=== PATIENT | male | born 1980 ===

== ENCOUNTER 2024-12-24 10:41 | Emergency (ER) | payer OTHER, SELFPAY ==
--- NOTE | ~2024-12-24 | XR_ITS ---
EXAMINATION: XR FACIAL BONES CLINICAL INFORMATION: ? foreign body lower lip-metal COMPARISON: None available. TECHNIQUE: 3 views of the facial bones were obtained. FINDINGS: There is linear high density proximal 4 mm in length in the anterior midline of the lower leg. Numerous dental changes are evident related to teeth fillings. No fracture is evident. XR/XR facial bones <3V IMPRESSION: Linear high density in the lower lip 4 mm in length is probably metallic in nature. Electronically signed by: Wilbur Burnett MD 12/24/2024 12:36 PM EST RP
--- NOTE | 2024-12-24 11:17 | ED_ITS ---
HPI - General Adult General Chief complaint: Skin/Abscess/Foreign Body Stated complaint: injury Time Seen by Provider: 12/24/24 13:51 Source: patient, family (daughter-bilingual, - cymraes only), RN notes reviewed, old records reviewed and translator and interpreter (Brazilian) Mode of arrival: ambulatory Limitations: language barrier History of Present Illness ED Provider: Jessica Mayer PA-C HPI narrative: History and physical done using interpreter and translator, discussed plan and discharge instructions ahead of time ? On Friday, while attempting to remove a screw from a motorcycle, patient struck the screw with a hammer and screwdriver. ? A ?piece of metal? became lodged in the patient?s lip; there was significant bleeding at the time. ? At home the patient applied direct pressure and topical antibiotic ointment. ? Denies additional trauma since the incident. Tetanus immunization is up-to-date. ? Primary concern today is removal of the retained foreign body to reduce infection risk. Patient received RME with facial xray ordered. Related Data Previous Rx's ?Medication ?Instructions ?Recorded amoxicillin 875 mg-potassium 1 tab PO BID #10 tabs clavulanate 125 mg tablet Allergies Allergy/AdvReac Type Severity Reaction Status Date / Time No Known Allergies Allergy Verified 12/24/24 11:31 Review of Systems Review of Systems: Yes all other systems are reviewed and are negative PMFSH Social History Social History Advance Directives: No Advance Directives Information Provided: No Physical Exam ED Exam Exam: General: Appears in no acute distress, appears well nourished body habitus is normal, appears stated age. No septic or ill-appearing. Vitals reviewed normal, PMH/Social and Surgical hx reviewed including allergies and current medications. Head: Normocephalic, no obvious trauma or skin lesions noted. Eyes: EOMI, conjunctiva and sclera clear ENMT: moist oral mucosa, bottom mid lip, pinpoint palpable firm foreign body, 1mm of thin lip skin grown over, slightly edema no erythema, mild ttp, no red streaking, odor or d/c Neck: trachea midline Cardiovascular: peripheral perfusion normal, Regular heart rate Respiratory: no respiratory distress Abdomen: nondistended Extremities: warm and moving without difficulty Psych: Cooperative Neuro: Alert and oriented. Vital Signs: Vital Signs - 24 hr 12/24/24 11:30 12/24/24 13:27 Temperature 98 F 98.3 F Pulse Rate 85 81 Respiratory Rate 18 18 Blood Pressure 107/66 109/74 Pulse Oximetry 97 96 Oxygen Delivery Method Room Air Room Air BMI result Body Mass Index 24.7 Course Course Course Narrative: This is a rapid medical exam performed by Erika Maldonado NP: Additional HPI, ROS, PE not included below will be deferred to primary provider. Patient is a 44y/o Brazilian speaking male presenting to the ED with complaint of . Friday he was working on a bike, a piece of metal came out, entered the front of his lower lip, and he believes it's still lodged inside his lip. Area has been bleeding, not eating due to pain. Plan: xray Medications Administered Discontinued Medications Generic Name Dose Route Start Last Admin Trade Name Freq PRN Reason Stop Dose Admin Lidocaine HCl 2 ml 12/24/24 14:05 12/24/24 15:17 Lidocaine Hcl 2 % 20 Ml Vial INFILTRATI 12/24/24 14:06 2 ml ONCE ONE Administration Procedures Foreign Body Removal Time Out Performed: yes Site: face (lower mid best lip) Description of foreign body: other (metallic fragment 1mm x 4mm x 4mm) Sedation/Analgesia: none Technique: incision made to facilitate removal Confirmed by:: direct visualization and palpation Complications: none Post-procedure exam: awake, alert, normal BP, normal HR and normal O2 sat Neurovascular: normal distal pulse, normal capillary fill, distal light touch sensation intact, distal motor function normal, no signs of compartment syndrome, no change from pre-procedure and other (place one 4-0 vicryl suture in lip for closure, simple interrupted) Medical Decision Making Medical Decision Making [facility] Narrative: Patient presents with retained metallic foreign body to the lip following trauma on Friday. Requires removal to decrease infection risk. Problem #1: Retained foreign body, lip Assessment: Metallic fragment visible in lip following self-inflicted trauma; tetanus is current. Plan: * Administer local anesthetic to affected area. * Create minimal incision to extract foreign body; enlarge incision only if necessary. * If larger incision required, place absorbable suture; external portion will slough when internal portion dissolves. * Prescription: Oral antibiotic x 5 days, twice daily, due to proximity to oral cavity. * Post-procedure instructions: Soft diet and caution with food entry into incision for one week. Use probiotic/yogurt if antibiotic-associated diarrhea occurs. Work/School Note: Offered; patient to discuss needs further. Foreign body was removed. It required incision and has one stitch in place. This is a rapid absorbing suture. When the inside portion dissolves, the outside portion will fall off. TD is UTD. Use bacitracin or petroleum on bottom lip for protective covering. Careful eating. Gentle soap and water daily on this. Take antibiotic prophylaxis with over the counter probiotic to help prevent diarrhea. Return for increased pain or discharge. Differential Diagnosis Differential Diagnoses: The differential diagnosis associated with the presentation includes Admission/Observation Consideration of admission/observation: Escalation of care including admission/observation considered Independent Interpretation I performed an independent interpretation of an: Plain X-Ray Interpretation: metallic foreign body visualized in best lip Radiology Impression Discussion of test interpretation with radiology: I have reviewed the radiologist's reading. Radiologist Impression: foreign body present Independent Historian Clinical information obtained from an independent historian. History obtained from or confirmed by: Other (child) Prescription Management I considered prescription management with: Antibiotic Social Determinants Patient?s care significantly limited by Social Determinants of Health including: Other Social Determinant of Health Discharge Plan Discharge Clinical Impression: Foreign body in skin of lip Patient Disposition: Home, Self-Care Additional Instructions: Hoy acudi? al servicio de urgencias por sospecha de tener un cuerpo extra?o retenido en el labio. Laurita era parcialmente visible chandu la exploraci?n y se confirm? mediante radiograf?a. Se visualiz? un cuerpo extra?o en el labio con tejido circundante intacto y sin sangrado activo ni supuraci?n. Bajo anestesia local, se realiz? shaun incisi?n m?mila para extraer el cuerpo extra?o. Se coloc? shaun sutura de r?pida absorci?n; la parte externa se desprender? al disolverse la interna. El procedimiento transcurri? sin complicaciones y el cuerpo extra?o se extrajo con ?xito. Medicamentos prescritos: ? Antibi?fabian oral chandu 5 d?as, dos veces al d?a, debido al alto riesgo de infecci?n asociado a las heridas bucales y kessler proximidad a la briana oral.[3] ? Probi?fabian de venta crispin o yogur recomendado en donald de diarrea asociada al antibi?fabian. Cuidado de la herida e instrucciones diet?nuria: ? Aplicar bacitracina o vaselina en el labio inferior para protegerlo. ? Limpiar la willy suavemente con agua y jab?n diariamente; evitar las soluciones antis?pticas, ya que pueden dificultar la cicatrizaci?n. ? Mantener shaun dieta blanda chandu shaun semana y tener cuidado de evitar que los alimentos entren en contacto con la incisi?n. ? La herida puede mojarse chandu las primeras 24-48 horas sin aumentar el riesgo de infecci?n. ? La sutura es absorbible; la parte externa se desprender? jeanie. ? Mantener shaun buena higiene bucal para favorecer la cicatrizaci?n y reducir el riesgo de infecci?n. Recomendaciones de seguimiento: Regrese para shaun evaluaci?n si el dolor aumenta, si presenta secreci?n o signos de infecci?n. Se recomienda un seguimiento de rutina dentro de las 72 horas para detectar posibles complicaciones, ya que, aunque raramente, las lesiones por empalamiento en la cavidad oral pueden provocar secuelas neurol?gicas. Puede acudir a kessler m?dico de cabecera o a un centro de urgencias. Tambi?n puede regresar aqu? cuando quiera. You were seen in emergency department today with concerns of retained foreign body in your lip. This was partially visible on exam, and confirmed with xray imaging. A foreign body was visualized in the lip with intact surrounding tissue and no active bleeding or purulence. Under local anesthesia, a minimal incision was made to extract the foreign body. One rapid-absorbing suture was placed; the external portion will slough off as the internal portion dissolves. The procedure was uncomplicated and the foreign body was successfully removed. Medications Prescribed: * Oral antibiotic prescribed for 5 days, twice daily, due to the high risk of infection associated with oral wounds and proximity to oral briana.[3] * Hjif-kzx-crnyzjw probiotic or yogurt recommended if antibiotic-associated diarrhea occurs. Wound Care and Dietary Instructions: * Apply bacitracin or petroleum jelly to the bottom lip for protective coverage. * Clean the area gently with soap and water daily; avoid antiseptic solutions as they may impair healing. * Maintain a soft diet for one week and exercise caution to prevent food from entering the incision site. * The wound may get wet within the first 24?48 hours without increasing infection risk. * Suture is absorbable; the external portion will fall off naturally. * Maintain good oral hygiene to support healing and reduce infection risk. Follow-Up Recommendations: Return for evaluation if increased pain, discharge, or signs of infection develop. Routine follow-up is advised within 72 hours to monitor for complications, as impalement injuries of the oral cavity may rarely result in neurological sequelae. You may do this via PCP or urgent care. You are always welcome back here too. Prescriptions: New amoxicillin-pot clavulanate 875-125 mg tablet 1 tab PO BID Qty: 10 0RF Referrals: Physician,Unknown J [Primary Care Provider, Medical] Stand Alone Forms: Work/School Release Interventions: ED Discharge Assessment Last Done: 12/24/24 15:20 Discharge Date/Time: 12/24/24 15:21 Print Language: Estonian
[2024-12-24 11:30] VITALS: BP 107/66; PULSE 85; RESP 18; TEMP 36.6; O2SAT 97; BMI 24.7
[2024-12-24 13:27] VITALS: BP 109/74; PULSE 81; RESP 18; TEMP 36.8; O2SAT 96
[2024-12-24 15:17] VITALS: BP 121/72; PULSE 72; RESP 18; TEMP 36.8; O2SAT 95
[2024-12-24] MEDS: Lidocaine HCl 2 % 20 ML VIAL INFILTRATI (15:17)
[2024-12-24 15:20] VITALS: BP 121/72; PULSE 72; RESP 18; TEMP 36.8; O2SAT 95
--- OUTSIDE RECORDS SUMMARY | 2024-12-24 21:14 | XMS_ITS | Clinical Summary ---
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 Name Role Phone Unavailable Primary Care Provider Unavailabl e Social History Tobacco Use Types Packs/Day Years Used Date Smoking Tobacco: Never Assessed Sex and Gender Information Value Date Recorded Sex Assigned at Not on file Legal Sex Male 7:32 PM EST Gender Identity Not on file Sexual Orientation Not on file Plan of Treatment Health Maintenance Due Date Last Done Comments DTaP,Tdap,and Td Vaccines (1 - Tdap) 2000 Hepatitis B Vaccines (1 of 3 - 19+ 3-dose series) 2000 HPV Vaccines (1 - 3-dose SCD M series) 2008 Cholesterol Screening (Lipid Panel) 01/12/2022 HIV Screening 01/12/2022 Hepatitis C Screening 01/12/2022 Social Influencers of Health Screening 01/12/2022 Depression Screening 02/11/2024 COVID-19 Vaccine (1 - 2024-2 6 season) 2024 Influenza Vaccine (#1) 2024 RSV Immunization Adult Patie nts (1 - 1-dose 75+ series) 2056 HIB Vaccines Aged Out No longer eligi ble based on patient's age to complete this topic Hepatitis A Vaccines Aged Out No long er eligible based on patient's age to complete this topic IPV Vaccines Aged Out No longer eligi ble based on patient's age to complete this topic MMR Vaccines Aged Out No longer eligi ble based on patient's age to complete this topic Meningococcal ACWY Vaccine Aged Out N o longer eligible based on patient's age to complete this topic Meningococcal B Vaccine Aged Out No l onger eligible based on patient's age to complete this topic Pneumococcal Vaccine: Pediat rics (0 to 5 Years) and At-Risk Patients (6 to 49 Years) Aged Out No longer eligible b ased on patient's age to complete this topic RSV Immunization Patients Un vincent 20 months Aged Out No longer eligible b ased on patient's age to complete this topic Varicella Vaccines Aged Out No longer eligible based on patient's age to complete this topic
== END 2024-12-24 15:21 | disposition home or self-care (01) ==
PROVIDERS: Emergency Provider Emergency Medicine
DX: S00.551A Superficial foreign body of lip, initial encounter (principal); X58.XXXA Exposure to other specified factors, initial encounter; Y93.89 Activity, other specified; Y92.9 Unspecified place or not applicable; Y99.9 Unspecified external cause status
CPT/HCPCS: 40804; 70140; 99283; 99284; J2003

== ENCOUNTER → 2024-12-24 11:31 | Outpatient (BNV) | payer OTHER, SELFPAY | PROVIDERS: Visit Provider Radiology Diagnostic Radiology | DX: Z03.89 Encounter for observation for other suspected diseases and conditions ruled out (principal) | CPT/HCPCS: 70140 ==